=== PATIENT | female | born 1960 | race African-American/Black ===

== ENCOUNTER 2019-03-10 07:59 | Emergency (ER) | payer MEDICAID, MEDICARE ==
[~2019-03-10] VITALS: Ht 157.5 cm; Wt 50.0 kg
[2019-03-10] MEDS ORDERED: ACETAMINOPHEN 325MG TABLET PO ONE (10:00)
[2019-03-10 10:53] VITALS: BP 171/65
== END 2019-03-10 11:06 | disposition home or self-care (01) ==
LOC: ER 07:59
DX: S00.83XA Contusion of other part of head, initial encounter (principal); S02.5XXA Fracture of tooth (traumatic), initial encounter for closed fracture; I10 Essential (primary) hypertension; Y04.2XXA Assault by strike against or bumped into by another person, initial encounter; Y93.89 Activity, other specified; Y92.22 Religious institution as the place of occurrence of the external cause
CPT/HCPCS: 70486; 99284